=== PATIENT | male | born 1955 | race Caucasian/White ===

== ENCOUNTER 2020-11-01 06:44 | Emergency (ER) | payer OTHER ==
[~2020-11-01] VITALS: Ht 175.3 cm; Wt 197.5 kg
[~2020-11-01 06:44] MED LIST: ASPIR LOW81 MG PO; ATIVAN 2MG2 MG PO; BACLOFEN10 M1 PO; BISOPROLOL5 MG PO; DIABETA 5MG5 MG/TAB PO; DICLOFENAC SODI75 MG PO; ELIQUIS5 MG PO; FISH OIL500 M2 PO; KLONOPIN 1MG1 MG PO; MIRAPEX0.25 MG PO; MOBIC15 MG PO; NIACIN500 M5 PO; NITROTAB0.4 MG SL; OPANA ER20 MG PO; OPANA ER40 MG PO; PRAZOSIN PO; PROTONIX 40MG T40 MG PO; ROZEREM8 MG PO; SYNTHROID0.075 MG/T PO; ULTRAM 50MG TAB50 MG PO; WELLBUTRIN 75MG75 MG PO; ZOLOFT50 MG PO
[2020-11-01] MEDS ORDERED: LEVOTHYROXIN0.075 MG PO (06:56)
[2020-11-01 07:42] LABS: BASO # 0.03 (0.02-0.10); EOS # 0.12 (0.04-0.40); EOS % 1.9 % (0.0-4.0); HEMATOCRIT 47.7 % (42.0-52.0); HEMOGLOBIN 14.8 g/dL (13.5-18.0); LYMPH# 0.95 (1.50-4.00); MEAN CELL VOLUME 90 fl (78-100); MEAN CORPUSCULAR HEMOGLOBIN 28 pg (27-31); MEAN CORPUSCULAR HGB CONC 31 g/dL (33-37); MEAN PLATELET VOLUME 10.2 fl (7.4-10.4); MONO # 0.75 (0.20-0.80); NEU # 4.54 (1.40-6.50); PLATELET COUNT 236 K/mm3 (130-400); RED BLOOD COUNT 5.33 M/mm3 (4.20-5.60); RED CELL DISTRIBUTION WIDTH 14.6 % (11.5-14.5); WHITE BLOOD COUNT 6.4 K/mm3 (4.8-10.8)
[2020-11-01 07:49] LABS: ALBUMIN 3.9 g/dL (3.4-4.8); POTASSIUM 3.4 mmol/L (3.5-5.1); SODIUM 136 mmol/L (136-145)
[2020-11-01 07:50] LABS: CALCIUM 8.9 mg/dL (8.3-10.5)
[2020-11-01 07:51] LABS: GLUCOSE 158 mg/dL (75-110); TOTAL PROTEIN 7.3 g/dL (6.2-8.1)
[2020-11-01 07:52] LABS: CARBON DIOXIDE 20 mmol/L (23-31)
[2020-11-01 07:53] LABS: TOTAL BILIRUBIN 0.6 mg/dL (0.2-1.2)
[2020-11-01 07:55] LABS: D-DIMER 0.28 mg/L FEU (0.15-0.50)
[2020-11-01 07:56] LABS: AST-SGOT 27 U/L (5-34)
[2020-11-01 07:58] LABS: ALT/SGPT 31 U/L (0-55)
[2020-11-01 08:23] LABS: TROPONIN-I < 0.03 ng/mL (<0.030)
[2020-11-01 08:58] LABS: URINE APPEARANCE CLEAR; URINE BILIRUBIN NEGATIVE (NEGATIVE); URINE BLOOD NEGATIVE (NEGATIVE); URINE COLOR YELLOW; URINE GLUCOSE NEGATIVE (NEGATIVE); URINE KETONE NEGATIVE (NEGATIVE); URINE LEUKOCYTE ESTERASE NEGATIVE (NEGATIVE); URINE NITRATE NEGATIVE (NEGATIVE); URINE PROTEIN(semi-quant) TRACE mg/dL (NEGATIVE); URINE UROBILINOGEN NORMAL (NORMAL)
[2020-11-01] MEDS ORDERED: PREDNISONE20 MG PO (10:12)
[2020-11-01] MEDS ORDERED: DOXYCYCLINE MO100 M3 PO (10:12)
[2020-11-01] MEDS ORDERED: IPRATROPIUM BROM3 M1 IH (10:14)
[2020-11-01 11:20] VITALS: BP 110/73
== END 2020-11-01 11:20 | disposition home or self-care (01) ==
LOC: ED 06:44
PROVIDERS: Family Medicine
DX: J40 Bronchitis, not specified as acute or chronic (principal); I50.9 Heart failure, unspecified; I48.91 Unspecified atrial fibrillation; E03.9 Hypothyroidism, unspecified; E66.01 Morbid (severe) obesity due to excess calories; Z79.82 Long term (current) use of aspirin; Z79.01 Long term (current) use of anticoagulants; Z79.890 Hormone replacement therapy; Z20.822 Contact with and (suspected) exposure to COVID-19
CPT/HCPCS: J1940; J2930